=== PATIENT | male | born 1995 | race Caucasian/White ===

== ENCOUNTER 2016-09-19 03:04 | Emergency (ER) | payer SELFPAY ==
--- NOTE | 2016-09-22 19:08 | ER ---
ADMIT: 09/19/2016 RM/LOC: ER [facility] MR#: [id number] [address] [address] [address] [place] [address] [place] [address] Emergency Room Report SEX: M AGE: 21 : 1995 DATE: 09/19/2016 HISTORY OF PRESENT ILLNESS: The patient is a 21-year-old male with no specific past medical history. He came to the ER because he states that for the last half an hour, he is not able to feel the taste and he has no saliva. The patient denies any new happening or new incident. The patient denies any drug use or any recent illness. PHYSICAL EXAMINATION: GENERAL: The patient was mildly anxious, but he was not in any pain or distress. The patient was sitting in bed. The patient was afebrile but was mildly tachycardic. HEAD AND NECK: In the nasal cavity, there is mild swelling of the mucous membranes without any polyps. In the mouth, mucus membranes are wet, there is no tenderness or swelling over these salivary glands, submandibular, parotid and sublingual area. Using some salt and some sugar on the tongue, the patient could correctly diagnose them. Raccoon eyes. NECK: Soft. Trachea midline. LUNGS: Clear. HEART: Normal heart sounds. The rest of the physical exam is noncontributory. DISPOSITION: The patient had no signs or symptoms of the systematic disease for xerostomia. The patient was advised to use lemon drops, drink plenty of fluids, follow up with the primary doctor. The patient is stable to be discharged home. Naun Mccartney MD/ giselle JOB #: [id number] CC: Naun Mccartney MD, Attending Physician
== END 2016-09-19 03:35 | disposition home or self-care (01) ==
LOC: ER 03:04
DX: R43.9 Unspecified disturbances of smell and taste (principal)

== ENCOUNTER 2016-11-10 00:26 | Emergency (ER) | payer SELFPAY ==
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
== END 2016-11-10 00:39 ==
LOC: ER 00:26
DX: S00.12XA Contusion of left eyelid and periocular area, initial encounter (principal); Y04.2XXA Assault by strike against or bumped into by another person, initial encounter